=== PATIENT | male | born 1950 | race Caucasian/White ===

== ENCOUNTER 2020-08-09 11:45 | Emergency (ER) | payer MEDICARE ==
[~2020-08-09 11:45] MED LIST: ATORVASTATIN CA20 MG PO; BUSPAR 5MG TABLE5 MG PO; CLOPIDOGREL75 MG PO; ECOTRIN81 MG PO; FISH OIL 1,0001 EACH PO; HYDROCHLOROTHIA25 MG PO; METFORMIN HCL1000 M1 PO; MULTIVITAMINS1 EAC1 PO; NORVASC5 MG PO; OMNICEF 300 MG300 MG PO; PRINIVIL10 MG PO; PRINIVIL20 MG PO; ROBAXIN-750750 MG PO; TYLENOL PM EX-1 EACH PO; ZOCOR20 MG PO
[2020-08-09 14:52] LABS: RED BLOOD COUNT 3.81 M/UL (4.20-5.50); WHITE BLOOD COUNT 10.9 K/UL (4.5-11.0)
[2020-08-09 15:28] LABS: BUN/CREATININE RATIO 30 (0-10)
== END 2020-08-09 17:00 | disposition home or self-care (01) ==
LOC: ER1 11:45
PROVIDERS: Emergency Medicine
DX: R52 Pain, unspecified (principal); D64.9 Anemia, unspecified; I25.10 Atherosclerotic heart disease of native coronary artery without angina pectoris; I12.9 Hypertensive chronic kidney disease with stage 1 through stage 4 chronic kidney disease, or unspecified chronic kidney disease; E11.22 Type 2 diabetes mellitus with diabetic chronic kidney disease; N18.9 Chronic kidney disease, unspecified
CPT/HCPCS: 71045; 80053; 81001; 82550; 82553; 83605; 83735; 83874; 83880; 84484; 85025; 87040; 93005; 96374; 96375; 99284; J2270; J2405

== ENCOUNTER → 2020-09-04 | Outpatient (CLI) | payer MEDICARE | LOC: EXRD 15:41 | DX: M79.10 Myalgia, unspecified site (principal); M19.042 Primary osteoarthritis, left hand; M19.041 Primary osteoarthritis, right hand | CPT/HCPCS: 73130; 73620; 73630 ==

== ENCOUNTER → 2021-01-25 | Outpatient (CLI) | payer MEDICARE ==
[2021-01-29 16:11] LABS: ATYPICAL PANCA <1:20 titer (Neg:<1:20); CYTOPLASMIC (C-ANCA) <1:20 titer (Neg:<1:20)
== END ==
LOC: LAB 15:06
PROVIDERS: Internal Medicine Nephrology
DX: N18.2 Chronic kidney disease, stage 2 (mild) (principal)
CPT/HCPCS: 36415; 80053; 81001; 86256

== ENCOUNTER → 2021-01-29 | Outpatient (CLI) | payer MEDICARE ==
[2021-01-29 13:03] LABS: URINE TOTAL PROTEIN 176 mg/dl
== END ==
LOC: LAB 12:09
PROVIDERS: Internal Medicine Nephrology
DX: N18.2 Chronic kidney disease, stage 2 (mild) (principal)
CPT/HCPCS: 84156

== ENCOUNTER → 2021-04-13 | Outpatient (CLI) | payer MEDICARE | LOC: KOH-I 09:09 | DX: R10.12 Left upper quadrant pain (principal); R10.32 Left lower quadrant pain; N28.9 Disorder of kidney and ureter, unspecified | CPT/HCPCS: 74176 ==

== ENCOUNTER → 2021-05-01 | Outpatient (CLI) | payer MEDICARE | LOC: NM 12:38 | DX: R10.11 Right upper quadrant pain (principal) | CPT/HCPCS: 78226; A9537 ==

== ENCOUNTER 2021-09-15 17:41 | Emergency (ER) | payer MEDICARE ==
[2021-09-15 19:38] LABS: HEMOGLOBIN 11.9 gm/dl (14.0-17.5); RED BLOOD COUNT 3.77 M/UL (4.20-5.50); WHITE BLOOD COUNT 9.5 K/UL (4.5-11.0)
== END 2021-09-15 23:20 | disposition home or self-care (01) ==
LOC: ER1 17:41
PROVIDERS: Physician Assistant
DX: R00.1 Bradycardia, unspecified (principal); R60.0 Localized edema; K21.9 Gastro-esophageal reflux disease without esophagitis; E11.9 Type 2 diabetes mellitus without complications; E78.5 Hyperlipidemia, unspecified; M54.50 Low back pain, unspecified; R53.83 Other fatigue; Z95.2 Presence of prosthetic heart valve; Z95.828 Presence of other vascular implants and grafts; Z79.899 Other long term (current) drug therapy
CPT/HCPCS: 71045; 80053; 82550; 82553; 83880; 84439; 84443; 84484; 85025; 93005; 93242; 99284